=== PATIENT | male | born 1965 | race Caucasian/White ===

== ENCOUNTER 2022-08-22 22:08 | Emergency (ER) | payer SELFPAY ==
[2022-08-22 22:15] VITALS: BP 216/120; PULSE 80; RESP 20; TEMP 36.7; O2SAT 98; BMI 32.2
--- NOTE | 2022-08-22 22:21 | ECG_ITS ---
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
--- NOTE | 2022-08-22 22:27 | XRR_ITS ---
PROCEDURE INFORMATION: Exam: XR Chest Exam date and time: 08/22/2022 10:44 PM Age: 56 years old Clinical indication: Pain; Chest pressure; Additional info: Cp TECHNIQUE: Imaging protocol: Radiologic exam of the chest. Views: 1 view. COMPARISON: No relevant prior studies available. FINDINGS: Lungs: Unremarkable. No consolidation. Pleural spaces: Unremarkable. No pleural effusion. No pneumothorax. Heart/Mediastinum: Unremarkable. No cardiomegaly. Bones/joints: Unremarkable. XR/XR chest 1V portable [id number] IMPRESSION: No acute findings.
--- NOTE | 2022-08-22 22:48 | ED_ITS ---
HPI - Chest Pain General: Chief Complaint: Chest Pain Stated Complaint: High BP Time Seen by Provider: 08/22/22 22:29 Source: patient Mode of arrival: ambulatory Limitations: no limitations History of Present Illness: 56-year-old male who is here from [facility] he states that his blood pressures been running high throughout the day in [facility] today that given her to clonidine nare this morning and his blood pressure now is 260/120 states he had some slight chest pain since 10 AM as well he denies any severe pain in his chest rates his pain a 2 out of 10 denies any diaphoresis or nausea denies any shortness of breath. Associated symptoms: Deny abdominal pain, dyspnea, fever(s), nausea or vomiting Review of Systems Const: Denies: fever(s), chills, body aches or change in appetite Eyes: Denies: blurry vision or eye discomfort ENMT: Denies: throat pain or dental pain Card: Reports: chest pain Resp: Denies: dyspnea GI: Denies: abdominal pain, nausea, vomiting or diarrhea : Denies: dysuria Musc: Denies: neck pain or back pain Skin/Breast: Denies: rash Neuro: Denies: headache(s) Psych: Denies: depression Taj/Lymph: Denies: easy bruising All/Imm: Denies: urticaria PFSH ED PFSH: Medical History No pertinent past medical history Social History (Updated 08/22/22 @ 22:49 by Shira Salgado MD) Substance/Drug Use: unknown Physical Exam Const: COMMON NORMALS: no acute distress, patient oriented x3 and healthy appearing HENMT: COMMON NORMALS: normocephalic and atraumatic HEAD & SCALP: normocephalic and atraumatic Eye: COMMON NORMALS: Equal, round and reactive pupils present and EOMs intact bilaterally PUPIL: Yes Equal, round and reactive pupils present Neck/C-Spine: COMMON NORMALS: full ROM and supple Chest: COMMONS NORMALS: normal inspection of the chest and normal palpation of entire chest wall Resp: COMMON NORMALS: normal respiratory effort, No retractions, No use of accessory muscles and clear to auscultation bilaterally AUSCULTATION: clear to auscultation bilaterally Cardio: COMMON NORMALS: regular rate, regular rhythm and No murmurs present (Cardio) RATE: regular rate RHYTHM: regular rhythm GI: COMMON NORMALS: Normal to inspection, nondistended, normoactive bowel karsten nds present, Soft to palpation, non-tender and no masses PALPATION: Yes Soft to palpation Extremity: COMMON NORMALS: normal to inspection and full ROM Neuro: COMMON NORMALS: patient oriented x3, moves all extremities and no focal motor deficits Psych: COMMON NORMALS: mental status grossly normal, Normal thought process present and cooperative THOUGHT PROCESS: Normal thought process present Skin: COMMON NORMALS: no rashes or lesions noted and no wounds GENERAL SKIN EXAM: no rashes or lesions noted Course Vital Signs: Vital signs: Vital Signs Temperature 98.1 F 08/22/22 22:15 Pulse Rate 65 08/22/22 23:21 Respiratory Rate 17 08/22/22 23:21 Blood Pressure 182/130 08/22/22 23:21 Pulse Oximetry 97 08/22/22 23:21 Oxygen Delivery Me thod 08/22/22 23:21 MDM - Chest Pain Medical Decision Making Patient presents here with hypertension that has since improved he is likely had a chronic hypertension event know about it we will start him on metoprolol troponin here is normal no signs of aortic dissection or acute coronary s yndrome. He is to follow-up and return if worsening. Lab Data 08/22/22 22:53 08/22/22 22:53 Radiology Impressions Chest X-Ray 08/22/22 22:27 IMPRESSION: No acute findings. Laboratory Results WBC 8.5 10^3/uL (4.0-10.0) 08/22/22 22:53 RBC 5.53 10^6/uL (4.1-5.3) H 08/22/22 22:53 Hgb 16.5 g/dL (11.7-16.6) 08/22/22 22:53 Hct 48.1 % (42.0-52.0) 08/22/22 22:53 MCV 87.0 fl (80-94) 08/22/22 22:53 MCH 29.8 pg (28.0-34.0) 08/22/22 22:53 MCHC 34.3 g/dL (30.0-36.0) 08/22/22 22:53 RDW 12.5 % (12.1-15.1) 08/22/22 22:53 Plt Count 211 10^3/cmm (130-400) 08/22/22 22:53 MPV 10.1 fL (7.4-10.4) 08/22/22 22:53 Neut % (Auto) 57.2 % 08/22/22 22:53 Lymph % (Auto) 29.1 % 08/22/22 22:53 Cottle % (Auto) 10.6 % 08/22/22 22:53 Eos % (Auto) 1.6 % 08/22/22 22:53 Baso % (Auto) 1.1 % 08/22/22 22:53 Neut # (Auto) 4.87 10^3/uL (1.8-7.7) 08/22/22 22:53 Lymph # (Auto) 2.5 10^3/uL (0.8-4.8) 08/22/22 22:53 [place]le # (Auto) 0.9 10^3/uL (0.2-0.9) 08/22/22 22:53 Eos # (Auto) 0.1 10^3/uL (0.0-0.8) 08/22/22 22:53 Baso # (Auto) 0.1 10^3/uL (0.0-0.1) 08/22/22 22:53 Nucleated RBC % (auto) 0 % 08/22/22:53 Nucleated RBCs # 0.0 /100WBC 08/22/22 22:53 PT 13.30 SECONDS (12.1-14.9) 08/22/22 22:53 INR 0.98 (0.8-1.2) 08/22/22 22:53 Sodium 141 mmol/L (136-145) 08/22/22 22:53 Potassium 4.2 mmol/L (3.5-5.1) 08/22/22 22:53 Chloride 105 mmol/L (98-107) 08/22/22 22:53 Carbon Dioxide 23 mmol/L (22-29) 08/22/22 22:53 Anion Gap 17.2 (5-19) 08/22/22 22:53 BUN 11 mg/dL (6-20) 08/22/22 22:53 Creatinine 1.0 mg/dL (0.7-1.2) 03/16/23 22:53 GFR Calculation 77.6 mL/min (90-130) L 08/22/22 22:53 Glucose 90 mg/dL (65-115) 08/22/22 22:53 Calculated Osmolality 291 mOsm/kg (285-295) 08/22/22 22:53 Calcium 9.0 mg/dL (8.5-10.5) 08/22/22 22:53 Total Bilirubin 0.5 mg/dL (0.15-1.2) 08/22/22 22:53 AST 31 U/L (0-40) 08/22/22 22:53 ALT 50 U/L (0-41) H 08/22/22 22:53 Alkaline Phosphatase 79 U/L (40-130) 08/22/22 22:53 Troponin T Baseline 9 ng/L (0-15) 08/22/22 22:53 Total Protein 7.1 g/dL (6.6-8.7) 08/22/22 22:53 Albumin 4.1 g/dL (3.5-5.2) 08/22/22 22:53 Globulin 3.0 g/dL (1.3-4.6) 08/22/22 22:53 EKG Data EKG 1: I personally reviewed and interpreted this EKG as follows: EKG interpretation date: 08/22/22 EKG interpretation time: 22:27 Interpretation: nsr hr [address] or t wave abnormalities qrs 99 qtc 395 Discharge Plan Discharge Patient Disposition: Home Clinical Impression: Chest pain, Hypertension Prescriptions: New metoprolol succinate 50 mg tablet extended release 24 hr 50 mg PO DAILY Qty: 30 0RF Discharge Orders: Discharge ED (Routine); Ordered 08/23/22 Ordered By: Shira Salgado Discharge Diet: Advance as tolerated Discharge Activity: Resume usual activity Patient Instructions: Chest Pain (ED), Hypertension (ED) Coding Level of Care Code ED Supervisor Phosphoric Acid for Danni Marquez
[2022-08-22 22:51] VITALS: BP 170/93; PULSE 67; RESP 15; O2SAT 96
[2022-08-22] MEDS: labetalol 5 mg/mL SDV 20mL 10 MG IVP (22:55)
[2022-08-22 23:01] LABS: Basophils # 0.1 10^3/uL (0.0-0.1); Basophils % 1.1 %; Eosinophils # 0.1 10^3/uL (0.0-0.8); Eosinophils % 1.6 %; Hematocrit 48.1 % (42.0-52.0); Hemoglobin 16.5 g/dL (11.7-16.6); Lymphocytes # 2.5 10^3/uL (0.8-4.8); Lymphocytes % 29.1 %; Mean Corpuscular HGB Conc 34.3 g/dL (30.0-36.0); Mean Corpuscular Hemoglobin 29.8 pg (28.0-34.0); Mean Platelet Volume 10.1 fL (7.4-10.4); Monocytes # 0.9 10^3/uL (0.2-0.9); Monocytes % 10.6 %; Neutrophils # 4.87 10^3/uL (1.8-7.7); Neutrophils % 57.2 %; Nucleated Red Blood Cells % 0 %; Platelet Count 211 10^3/cmm (130-400); Red Blood Count 5.53 10^6/uL (4.1-5.3); Red Cell Distribution Width 12.5 % (12.1-15.1); White Blood Count 8.5 10^3/uL (4.0-10.0)
[2022-08-22 23:08] LABS: INR 0.98 (0.8-1.2)
[2022-08-22 23:13] LABS: Alanine Aminotransferase 50 U/L (0-41); Albumin Level 4.1 g/dL (3.5-5.2); Alkaline Phosphatase 79 U/L (40-130); Anion Gap 17.2 (5-19); Aspartate Amino Transferase 31 U/L (0-40); Blood Urea Nitrogen 11 mg/dL (6-20); Carbon Dioxide 23 mmol/L (22-29); Chloride 105 mmol/L (98-107); Glomerular Filtration Rate 77.6 mL/min (90-130); Glucose 90 mg/dL (65-115); Osmolality Calculated 291 mOsm/kg (285-295); Potassium 4.2 mmol/L (3.5-5.1); Sodium 141 mmol/L (136-145); Total Bilirubin 0.5 mg/dL (0.15-1.2); Total Protein 7.1 g/dL (6.6-8.7)
[2022-08-22 23:14] LABS: Troponin(5th) Baseline 9 ng/L (0-15)
[2022-08-22 23:21] VITALS: BP 182/130; PULSE 65; RESP 17; O2SAT 97
[2022-08-22] MEDS: hyDRALAzine 20 mg/mL INJ 1 mL 10 MG IVP (23:30)
[2022-08-23] MEDS: hyDRALAzine 20 mg/mL INJ 1 mL IVP (00:13)
[2022-08-23 01:18] VITALS: BP 203/103; PULSE 79; RESP 16; O2SAT 96
--- NOTE | 2022-08-27 13:39 | DCPLANNER ---
Addendum entered by Mandy Fierro 08/28/22 14:43: information resources manager called patient due to no primary care physician - no answer at this time Original Note: information resources manager called patient due to no primary care physician - no answer at this time
== END 2022-08-23 01:21 | disposition home or self-care (01) ==
PROVIDERS: Emergency Provider Emergency Medicine
DX: R07.9 Chest pain, unspecified (principal); I10 Essential (primary) hypertension
CPT/HCPCS: 71045; 80053; 84484; 85025; 85610; 93005; 96374; 96375; 96376; 99285; J0360; J3490

== ENCOUNTER 2022-08-24 00:53 | Emergency (ER) | payer SELFPAY ==
[2022-08-24] VITALS (7 sets, daily range): BP systolic 161–233; BP diastolic 85–101; PULSE 60–81; RESP 14–18; TEMP 36.8; O2SAT 95–98; BMI 32.1
--- NOTE | 2022-08-24 01:40 | ECG_ITS ---
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
[2022-08-24] MEDS: enalaprilat 1.25 mg/mL Inj IVP (02:03)
[2022-08-24] MEDS: amlodipine 10 mg Tablet PO (02:03)
[2022-08-24] MEDS: labetalol 5 mg/mL SDV 20mL 20 MG IVP ×2 (02:06→03:08)
[2022-08-24] MEDS: metoprolol succinate ER (24 HR) 50 mg Tablet PO (03:49)
[2022-08-24] MEDS: lisinopril 20 mg Tablet PO (03:50)
--- NOTE | 2022-08-24 03:51 | PC.NURSE ---
ke chiu was given 3 metoprolol and 3 lisinopril for [facility] to administer over the next 3 days while waiting on mail order prescriptions that will arrive on Friday
--- NOTE | 2022-08-24 03:59 | W.ED.GENADLT ---
HPI - General Adult General: Chief complaint: General Medical Stated complaint: High BP Time Seen by Provider: 08/24/22 01:18 Source: patient History of Present Illness: 56-year-old male who was seen 24 hours or so ago for hypertension. Hypertension was controlled decently well in the ER, and he was discharged on medication, however medication was not able to be filled. He presents again this morning with hypertension in the 220s systolic. He is having some generalized chest tightness, which he was having before. He has a headache. He has mild shortness of breath. Onset (ago): hour(s) Location: head and chest Radiation: non-radiation Severity: moderate Quality: other Pain Consistency: intermittent Relieving factors: other Exacerbating factors: none Associated symptoms: Reports chest pain (Minimal), dyspnea (Minimal) and headache(s); Deny confusion, cough, diaphoresis, decreased appetite, fevers/chills, vomiting or weakness Review of Systems Const: Denies: fever(s) or diaphoresis Card: Reports: chest pain (Minimal) Resp: Reports: dyspnea (Minimal) GI: Denies: vomiting Neuro: Reports: headache(s); Denies: confusion PFS ED PFSH: Medical History No pertinent past medical history Physical Exam Const: COMMON NORMALS: no acute distress GENERAL APPEARANCE: cooperative; not ill appearing and not frail appearing HENMT: COMMON NORMALS: normocephalic, atraumatic and Normal external nose present HEAD & SCALP: normocephalic and atraumatic FACE & SINUS: normal facial exam and face symmetric NOSE: Normal external nose present Eye: COMMON NORMALS: Equal, round and reactive pupils present and EOMs intact bilaterally PUPIL: Yes Equal, round and reactive pupils present Neck/C-Spine: GENERAL: Yes trachea midline Chest: CHEST: Yes Symmetrical chest wall rise Resp: COMMON NORMALS: normal respiratory effort, No retractions, No use of accessory muscles and clear to auscultation bilaterally AUSCULTATION: clear to auscultation bilaterally Cardio: COMMON NORMALS: regular rate and regular rhythm RATE: regular rate RHYTHM: regular rhythm GI: COMMON NORMALS: Normal to inspection, nondistended, normoactive bowel sounds present Extremity: COMMON NORMALS: no pedal edema Neuro: SAROJ COMA SCALE: document GCS findings Saroj coma scale eye opening: Spontaneous Saroj coma scale verbal response: Orientated [place] coma scale motor response: Obey commands Saroj coma scale total score: 15 SENSORY EXAM: Yes extremities (intact) Psych: COMMON NORMALS: speech normal SPEECH: Yes normal speech Skin: COMMON NORMALS: no rashes or lesions noted GENERAL SKIN EXAM: no rashes or lesions noted Course Vital Signs: Vital signs: Vital Signs Temperature 98.3 F 08/24/22 01:08 Pulse Rate 60 08/24/22 03:23 Respiratory Rate 14 08/24/22 03:23 Blood Pressure 161/101 08/24/22 03:23 Pulse Oximetry 98 08/24/22 03:23 Oxygen Delivery Me thod 08/24/22 01:43 MDM - General Adult Medical Decision Making Labs are essentially 24 hours old. They were not repeated, as they were not remarkable prior. This is likely a case of chronic hypertension that is gone undiagnosed. He simply did not get his antihypertensives today. Blood pressure down to 170 systolic over 80s diastolic after IV labetalol and Vasotec with 1 oral amlodipine. He is feeling improved. Last night he was prescribed metoprolol extended release. This will be continued, as well as we will put him on 20 mg of lisinopril given his significantly high blood pressures that will likely need at least 2 medications to control. He was given his first doses of these this morning, and dispensed to more doses to get him through the weekend so that he can get his prescription filled at the beginning of the week. He will return for worsening symptoms despite treatment. Discharge Plan Discharge Patient Disposition: Home Clinical Impression: Hypertension Condition: Stable Prescriptions: New lisinopril 20 mg tablet 20 mg PO DAILY Qty: 30 0RF Continued metoprolol succinate 50 mg tablet extended release 24 hr 50 mg PO DAILY Qty: 30 0RF Discharge Orders: Discharge ED (Routine); Ordered 08/24/22 Ordered By: Saeed De Santiago Patient Instructions: Hypertension (ED) Activity Restrictions/Additional Instructions: Medications as directed. Return for inability to control blood pressure despite 2 doses of medications, symptomatic high blood pressure, mental status changes, weakness, chest pain, other concerning symptoms. Coding Level of Care Code ED Poultry Inspector for Danni Marquez
--- NOTE | 2022-08-27 14:45 | DCPLANNER ---
tire shop manager called patient due to no primary care physician - no answer at this time
== END 2022-08-24 04:00 | disposition home or self-care (01) ==
PROVIDERS: Emergency Provider Emergency Medicine
DX: I10 Essential (primary) hypertension (principal)
CPT/HCPCS: 93005; 96360; 96361; 96376; 99284; J3490

== ENCOUNTER 2022-08-25 18:56 | Emergency (ER) | payer SELFPAY ==
[2022-08-25 19:13] VITALS: BP 208/151; PULSE 79; RESP 18; TEMP 37.1; O2SAT 97; BMI 32.1
--- NOTE | 2022-08-25 19:16 | XRR_ITS ---
PROCEDURE INFORMATION: Exam: XR Chest Exam date and time: 08/25/2022 7:19 PM Age: 56 years old Clinical indication: Cough; Additional info: Hematemasis TECHNIQUE: Imaging protocol: Radiologic exam of the chest. Views: 1 view. COMPARISON: CR (CHEST, ) 08/22/2022 10:44 PM FINDINGS: Lungs: Unremarkable. No consolidation. Pleural spaces: Unremarkable. No pleural effusion. No pneumothorax. Heart/Mediastinum: Unremarkable. No cardiomegaly. Bones/joints: Unremarkable. XR/XR chest 1V portable [id number] IMPRESSION: No acute findings.
[2022-08-25 19:24] LABS: Basophils # 0.1 10^3/uL (0.0-0.1); Basophils % 1.2 %; Eosinophils # 0.4 10^3/uL (0.0-0.8); Eosinophils % 4.9 %; Hemoglobin 16.1 g/dL (11.7-16.6); Lymphocytes # 1.8 10^3/uL (0.8-4.8); Lymphocytes % 23.1 %; Mean Corpuscular HGB Conc 32.9 g/dL (30.0-36.0); Mean Corpuscular Hemoglobin 29.3 pg (28.0-34.0); Mean Corpuscular Volume 89.1 fl (80-94); Mean Platelet Volume 10.2 fL (7.4-10.4); Monocytes # 0.5 10^3/uL (0.2-0.9); Monocytes % 5.9 %; Neutrophils # 4.88 10^3/uL (1.8-7.7); Neutrophils % 64.5 %; Nucleated Red Blood Cells % 0 %; Platelet Count 214 10^3/cmm (130-400); Red Cell Distribution Width 12.9 % (12.1-15.1); White Blood Count 7.6 10^3/uL (4.0-10.0)
[2022-08-25 19:30] VITALS: PULSE 68; RESP 18; O2SAT 96
--- NOTE | 2022-08-25 19:34 | ED_ITS ---
HPI - Abdominal Pain General: Chief Complaint: Abdominal Pain Stated Complaint: high bp,coughing up blood Time Seen by Provider: 08/25/22 19:12 Source: patient History of Present Illness: 56-year-old incarcerated male who has been seen twice in the last 3 days for hypertension. He was placed on 2 antihypertensives, metoprolol and lisinopril on discharge. He reports taking these medications appropriately. Despite this, his blood pressures have been as low as 170 systolic, and as high as over 200 systolic. He has developed a cough. Today, he noticed some dark red blood in the sputum. No fever. No leg swelling. He complains of a tightness and ache in his chest and epigastrium that radiates through into his back. Pertinent past history: other Onset (ago): day(s) Pain Consistency: constant Quality: aching Radiation: epigastric and back Migration to: no migration Exacerbating factors: nothing Relieving factors: nothing Associated Symptoms: Denies belching, bloating, change in bowel habits, diarrhea, fever(s), hematemesis, melena and poor appetite Review of Systems Const: Denies: fever(s) ENMT: Denies: throat pain Card: Reports: chest pain Resp: Reports: dyspnea, productive cough and hemoptysis; Denies: non-productive cough GI: Denies: hematemesis, diarrhea, bloating, belching, change in bowel habits or melena : Denies: flank pain Musc: Reports: back pain [facility] ED PFSH: Medical History No pertinent past medical history Physical Exam Const: COMMON NORMALS: no acute distress GENERAL APPEARANCE: cooperative; not ill appearing and not frail appearing HENMT: COMMON NORMALS: normocephalic, atraumatic and Normal external nose present HEAD & SCALP: normocephalic and atraumatic FACE & SINUS: normal facial exam and face symmetric NOSE: Normal external nose present Eye: COMMON NORMALS: Equal, round and reactive pupils present and EOMs intact bilaterally PUPIL: Yes Equal, round and reactive pupils present Neck/C-Spine: GENERAL: Yes trachea midline Chest: CHEST: Yes Symmetrical chest wall rise Resp: COMMON NORMALS: normal respiratory effort, No retractions, No use of accessory muscles and clear to auscultation bilaterally AUSCULTATION: clear to auscultation bilaterally Cardio: COMMON NORMALS: regular rate and regular rhythm RATE: regular rate RHYTHM: regular rhythm GI: COMMON NORMALS: Normal to inspection, nondistended, normoactive bowel sounds present PALPATION: Yes Tenderness to palpation present (GI) (Epigastric) Extremity: COMMON NORMALS: no pedal edema Neuro: SAROJ COMA SCALE: document GCS findings [place] coma scale eye opening: Spontaneous Saroj coma scale verbal response: Orientated [place] coma scale motor response: Obey commands Saroj coma scale total score: 15 SENSORY EXAM: Yes extremities (intact) Psych: COMMON NORMALS: speech normal SPEECH: Yes normal speech Skin: COMMON NORMALS: no rashes or lesions noted GENERAL SKIN EXAM: no rashes or lesions noted Course Vital Signs: Vital signs: Vital Signs Temperature 98.8 F 08/25/22 19:13 Pulse Rate 60 08/25/22 21:25 Respiratory Rate 18 08/25/22 20:02 Blood Pressure 144/82 08/25/22 21:25 Pulse Oximetry 97 08/25/22 21:25 Oxygen Delivery Me thod 08/25/22 20:19 MDM - Abdominal Pain Medical Decision Making Spoke with the patient's primary physician from the [place] [facility]. He has been concerned about this patient's blood pressure as well. They have been using clonidine up to twice daily for control which had seem to be working well. Initial blood pressure here was 208 systolic. The patient was given sublingual nitroglycerin, 1.25 mg of Vasotec, and 10 mg of amlodipine. Currently blood pressure is 143/84. He was having some chest discomfort, and has been on and off for several days. His troponin level is 9. His BNP is normal. CBC is normal. His creatinine is 1.0. His BMP is otherwise not remarkable. He is spilling no protein in his blood. There was some question about hemoptysis, but his D-dimer is 0.44 and chest x-ray is negative. His mediastinum is not widened. His EKG shows a sinus rhythm with normal axis and normal intervals. There are no ST wave changes, no significant Q waves. Recommendations from the PCP are increasing metoprolol to 100 daily, maintaining lisinopril 20 mg, and adding clonidine 0.2 mg twice daily if needed. Also recommended were to crush float medications some malingering would not be an issue if in fact that is the problem. Lab Data 08/25/22 19:15 08/25/22 19:15 Labs/Radiology: Radiology Impressions Chest X-Ray 08/25/22 19:16 IMPRESSION: No acute findings. Laboratory Results WBC 7.6 10^3/uL (4.0-10.0) 08/25/22 19:15 RBC 5.50 10^6/uL (4.1-5.3) H 08/25/22 19:15 Hgb 16.1 g/dL (11.7-16.6) 08/25/22 19:15 Hct 49.0 % (42.0-52.0) 08/25/22 19:15 MCV 89.1 fl (80-94) 08/25/22 19:15 MCH 29.3 pg (28.0-34.0) 08/25/22 19:15 MCHC 32.9 g/dL (30.0-36.0) 08/25/22 19:15 RDW 12.9 % (12.1-15.1) 08/25/22 19:15 Plt Count 214 10^3/cmm (130-400) 08/25/22 19:15 MPV 10.2 fL (7.4-10.4) 08/25/22 19:15 Neut % (Auto) 64.5 % 08/25/22 19:15 Lymph % (Auto) 23.1 % 08/25/22 19:15 [place] % (Auto) 5.9 % 08/25/22 19:15 Eos % (Auto) 4.9 % 08/25/22 19:15 Baso % (Auto) 1.2 % 08/25/22 19:15 Neut # (Auto) 4.88 10^3/uL (1.8-7.7) 08/25/22 19:15 Lymph # (Auto) 1.8 10^3/uL (0.8-4.8) 08/25/22 19:15 [place] # (Auto) 0.5 10^3/uL (0.2-0.9) 08/25/22 19:15 Eos # (Auto) 0.4 10^3/uL (0.0-0.8) 08/25/22 19:15 Baso # (Auto) 0.1 10^3/uL (0.0-0.1) 08/25/22 19:15 Nucleated RBC % (auto) 0 % 08/25/22 19:15 Nucleated RBCs # 0.0 /100WBC 08/25/22 19:15 PT 13.40 SECONDS (12.1-14.9) 08/25/22 19:15 INR 0.99 (0.8-1.2) 08/25/22 19:15 APTT 27.1 SECONDS (23.9-36.7) 08/25/22 19:15 D-Dimer 0.44 ug/mIFEU (0-0.59) 08/25/22 19:15 Sodium 143 mmol/L (136-145) 08/25/22 19:15 Potassium 4.6 mmol/L (3.5-5.1) 08/25/22 19:15 Chloride 107 mmol/L (98-107) 08/25/22 19:15 Carbon Dioxide 25 mmol/L (22-29) 08/25/22 19:15 Anion Gap 15.6 (5-19) 08/25/22 19:15 BUN 13 mg/dL (6-20) 08/25/22 19:15 Creatinine 1.0 mg/dL (0.7-1.2) 08/25/22 19:15 GFR Calculation 77.6 mL/min (90-130) L 08/25/22 19:15 Glucose 154 mg/dL (65-115) H 08/25/22 19:15 Calculated Osmolality 299 mOsm/kg (285-295) H 08/25/22 19:15 Calcium 9.3 mg/dL (8.5-10.5) 08/25/22 19:15 Total Bilirubin 0.7 mg/dL (0.15-1.2) 08/25/22 19:15 AST 22 U/L (0-40) 08/25/22 19:15 ALT 38 U/L (0-41) 08/25/22 19:15 Alkaline Phosphatase 81 U/L (40-130) 08/25/22 19:15 Troponin T Baseline 9 ng/L (0-15) 08/25/22 19:15 NT-Pro-B Natriuret Pep 105 pg/mL (0-125) 08/25/22 19:15 Total Protein 6.8 g/dL (6.6-8.7) 08/25/22 19:15 Albumin 4.6 g/dL (3.5-5.2) 08/25/22 19:15 Globulin 2.2 g/dL (1.3-4.6) 08/25/22 19:15 Urine Color Yellow (Yellow) 08/25/22 20:51 Urine Appearance Clear (CLEAR) 08/25/22 20:51 Urine pH 7 (5-7) 08/25/22 20:51 Ur Specific [place] 1.005 (1.005-1.030) 08/25/22 20:51 Urine Protein Neg (Negative) 08/25/22 20:51 Urine Glucose (UA) Norm (Normal) 08/25/22 20:51 Urine Ketones Negative (Negative) 08/25/22 20:51 Urine Blood Neg (Negative) 08/25/22 20:51 Urine Nitrate Negative (Negative) 08/25/22 20:51 Urine Bilirubin Neg (Negative) 08/25/22 20:51 Urine Urobilinogen Norm mg/dL (Negative) 08/25/22 20:51 Ur Leukocyte Esterase Negative (Negative) 08/25/22 20:51 Discharge Plan Discharge Patient Disposition: Home Clinical Impression: Hypertension, Chest pain Condition: Stable Prescriptions: New metoprolol succinate 100 mg tablet extended release 24 hr 100 mg PO DAILY Qty: 30 0RF Discontinued metoprolol succinate 50 mg tablet extended release 24 hr 50 mg PO DAILY Qty: 30 0RF No Action lisinopril 20 mg tablet 20 mg PO DAILY Qty: 30 0RF Discharge Orders: Discharge ED (Routine); Ordered 08/25/22 Ordered By: Saeed De Santiago Patient Instructions: Chest Pain (ED), Coughing Up Blood (Hemoptysis) (ED), Hypertension (ED) Activity Restrictions/Additional Instructions: Your evaluation did not show a serious cause for coughing up blood. Your blood pressure was managed in the emergency department. There does not appear to be any damage to the heart or lungs from blood pressure changes. In consultation with the primary care physician, we have changed medications, and more changes may come. Return for worsening symptoms despite treatment. Coding Level of Care Code ED Carbon Capture Power Plant Operator for Danni Marquez
[2022-08-25 19:40] LABS: INR 0.99 (0.8-1.2)
[2022-08-25 19:41] LABS: Partial Thromboplastin Time 27.1 SECONDS (23.9-36.7)
[2022-08-25 19:43] LABS: D Dimer 0.44 ug/mIFEU (0-0.59)
[2022-08-25 19:49] LABS: Troponin(5th) Baseline 9 ng/L (0-15)
[2022-08-25 19:56] LABS: Alanine Aminotransferase 38 U/L (0-41); Albumin Level 4.6 g/dL (3.5-5.2); Alkaline Phosphatase 81 U/L (40-130); Anion Gap 15.6 (5-19); Aspartate Amino Transferase 22 U/L (0-40); Blood Urea Nitrogen 13 mg/dL (6-20); Calcium 9.3 mg/dL (8.5-10.5); Carbon Dioxide 25 mmol/L (22-29); Chloride 107 mmol/L (98-107); Globulin 2.2 g/dL (1.3-4.6); Glomerular Filtration Rate 77.6 mL/min (90-130); Glucose 154 mg/dL (65-115); NT Pro B Type Natriuretic Pept 105 pg/mL (0-125); Osmolality Calculated 299 mOsm/kg (285-295); Potassium 4.6 mmol/L (3.5-5.1); Sodium 143 mmol/L (136-145); Total Bilirubin 0.7 mg/dL (0.15-1.2); Total Protein 6.8 g/dL (6.6-8.7)
[2022-08-25] MEDS: amlodipine 10 mg Tablet PO (19:58)
[2022-08-25] MEDS: nitroglycerin 0.4 mg sublingual Tablet SUBLINGUAL (19:59)
[2022-08-25] MEDS: enalaprilat 1.25 mg/mL Inj IVP (20:00)
[2022-08-25 20:02] VITALS: BP 165/92; PULSE 62; RESP 18; O2SAT 94
[2022-08-25 20:04] VITALS: O2SAT 94
--- NOTE | 2022-08-25 20:06 | PC.NURSE ---
Advised Dr. De Santiago, held labetolol 20 mg due to patient's sudden drop in BP after meds and HR of 62. Dr. De Santiago okayed.
--- NOTE | 2022-08-25 20:11 | ECG_ITS ---
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1965 Requested By: Saeed Santa Order Number: [id number] Reading MD: VALERIE NEGRETE Measurements Intervals [place] Rate: 66 P: 28 MD: 166 QRS: 10 QRSD: 106 T: 114 QT: 373 QTc: 391 Interpretive Statements SINUS RHYTHM WITH OCCASIONAL SUPRAVENTRICULAR PREMATURE COMPLEXES MODERATE T-WAVE ABNORMALITY, CONSIDER LATERAL ISCHEMIA [-0.1+ mV T-WAVE IN I/aVL/V5/V6] Compared to ECG 08/24/2022 01:16:25 Possible ischemia now present T-wave abnormality still present Electronically Signed On 08-26-2022 3:07:05 CDT by VALERIE NEGRETE [id number]
[2022-08-25 20:19] VITALS: BP 171/101; PULSE 65; O2SAT 96
[2022-08-25 20:52] LABS: Add Urine Microscopic? NO; Charge for UA Resulting for Rev
[2022-08-25 20:54] LABS: Bilirubin Urine Neg (Negative); Blood Urine Neg (Negative); Glucose Urine UA Norm (Normal); Ketones Urine Negative (Negative); Leukocyte Esterase Urine Negative (Negative); Nitrate Urine Negative (Negative); Protein Urine Neg (Negative); Specific Gravity, Urine 1.005 (1.005-1.030); Urine Appearance Clear (CLEAR); Urine Color Yellow (Yellow); Urobilinogen Urine Norm (Negative); pH Urine 7 (5-7)
[2022-08-25 21:25] VITALS: BP 144/82; PULSE 60; O2SAT 97
--- NOTE | 2022-08-29 11:23 | DCPLANNER ---
Addendum entered by Mandy Fierro 08/29/22 13:18: Case loretaer called patient due to no primary care physician - no answer at this time Original Note: 08.28.22 - TCM called patient due to no primary care physician
== END 2022-08-25 21:26 | disposition home or self-care (01) ==
PROVIDERS: Emergency Provider Emergency Medicine
DX: I10 Essential (primary) hypertension (principal); R07.9 Chest pain, unspecified
CPT/HCPCS: 71045; 80053; 81003; 83880; 84484; 85025; 85378; 85610; 85730; 93005; 96374; 99285; J3490

== ENCOUNTER 2022-08-29 02:23 | Emergency (ER) | payer SELFPAY ==
[2022-08-29] VITALS (33 sets, daily range): BP systolic 90–220; BP diastolic 49–161; PULSE 74–104; RESP 4–27; TEMP 37.2; O2SAT 94–98; BMI 32.1
--- NOTE | 2022-08-29 02:15 | XRR_ITS ---
PROCEDURE INFORMATION: Exam: XR Chest Exam date and time: 08/29/2022 2:25 AM Age: 56 years old Clinical indication: Other: Syncope; Patient HX: Syncopal episode. Hypertensive on monitor. ; Additional info: Cp TECHNIQUE: Imaging protocol: Radiologic exam of the chest. Views: 1 view. COMPARISON: CR (CHEST, ) 08/25/2022 7:19 PM FINDINGS: Lungs: No CHF/pulmonary edema. Visible lungs appear essentially clear. Pleural spaces: No visible pneumothorax. No definite pleural fluid. Heart/Mediastinum: Mild to moderate cardiomegaly Bones/joints: No significant acute finding. XR/XR chest 1V portable [id number] IMPRESSION: 1. No definite CHF or pneumonia. 2. Mild to moderate cardiomegaly. 3. Other findings discussed above.
--- NOTE | 2022-08-29 02:15 | CTR_ITS ---
PROCEDURE INFORMATION: Exam: CT Head Without Contrast Exam date and time: 08/29/2022 2:29 AM Age: 56 years old Clinical indication: Syncope and collapse; Patient HX: Syncopal episode. Hypertensive on monitor. TECHNIQUE: Imaging protocol: Computed tomography of the head without contrast. Radiation optimization: All CT scans at this facility use at least one of these dose optimization techniques: automated exposure control; mA and/or kV adjustment per patient size (includes targeted exams where dose is matched to clinical indication); or iterative reconstruction. REPORTING DATA: Count of CT and Cardiac NM exams in prior 12 months: This patient has received 0 known CTs and 0 known cardiac nuclear medicine studies in the 12 months prior to the current study. COMPARISON: No relevant prior studies available. RADIATION DOSE METRICS: Total DLP (mGy-cm): 1108.04 FINDINGS: Brain: No acute intracranial hemorrhage or mass effect. No definite acute infarct by CT. MRI could be more sensitive/specific for detection, as clinically directed. Cerebral ventricles: Ventricle size is normal for age. Paranasal sinuses: Very mild mucosal thickening/opacity in the left ethmoid sinus. Included paranasal sinuses otherwise appear essentially clear. Mastoid air cells: No significant acute finding. Bones/joints: No definite acute skull fracture. Soft tissues: No significant acute finding. CT/CT head wo con* [id number] IMPRESSION: 1. No acute intracranial hemorrhage or mass effect. 2. No definite acute infarct by CT, see above. 3. Other findings discussed above.
--- NOTE | 2022-08-29 02:15 | ECG_ITS ---
[facility] Test Date: 2022-08-29 Pat Name: Nilay Fry Department: Room: Gender: Male Supervisor [employer]: : 1965 Requested By: Shira Salgado Order Number: [id number] Robert MD: Harvey Denny M.D. Measurements Intervals [place] Rate: 91 P: 50 NM: 160 QRS: 89 QRSD: 90 T: 21 QT: 331 QTc: 407 Interpretive Statements SINUS RHYTHM NONSPECIFIC T-WAVE ABNORMALITY Compared to ECG 08/25/2022 20:11:30 Possible ischemia no longer present T-wave abnormality still present Electronically Signed On 08-29-2022 7:42:03 CDT by Harvey Denny M.D. [id number]
[2022-08-29 02:27] LABS: Basophils # 0.1 10^3/uL (0.0-0.1); Basophils % 1.1 %; Eosinophils # 0.1 10^3/uL (0.0-0.8); Eosinophils % 1.7 %; Hematocrit 51.2 % (42.0-52.0); Hemoglobin 17.6 g/dL (11.7-16.6); Lymphocytes # 2.1 10^3/uL (0.8-4.8); Mean Corpuscular HGB Conc 34.4 g/dL (30.0-36.0); Mean Corpuscular Hemoglobin 29.8 pg (28.0-34.0); Mean Corpuscular Volume 86.6 fl (80-94); Mean Platelet Volume 10.4 fL (7.4-10.4); Monocytes # 0.6 10^3/uL (0.2-0.9); Monocytes % 7.2 %; Neutrophils # 5.21 10^3/uL (1.8-7.7); Neutrophils % 63.8 %; Nucleated Red Blood Cells % 0 %; Platelet Count 210 10^3/cmm (130-400); Red Blood Count 5.91 10^6/uL (4.1-5.3); Red Cell Distribution Width 12.3 % (12.1-15.1); White Blood Count 8.2 10^3/uL (4.0-10.0)
--- NOTE | 2022-08-29 02:29 | ED_ITS ---
HPI - General Adult General: Chief complaint: General Medical Stated complaint: HTN Source: patient Mode of arrival: ambulatory Limitations: no limitations History of Present Illness: 56-year-old male who has a history of hypertension he is currently incarcerated he has been seen here multiple times for his high blood pressure he states tonight he did have a headache and passed out his blood pressure was in the 240s with EMS he is hypertensive here as well he had some mild chest pain as well he is been taking metoprolol and lisinopril he denies any worsening improving factors. Associated symptoms: Reports chest pain, headache(s) and syncope; Deny dyspnea, nausea, rash or vomiting Review of Systems Const: Denies: fever(s), chills, body aches or change in appetite Eyes: Denies: blurry vision or eye discomfort ENMT: Denies: throat pain or dental pain Card: Reports: chest pain and syncope Resp: Denies: dyspnea GI: Denies: abdominal pain, nausea, vomiting or diarrhea : Denies: dysuria Musc: Denies: neck pain or back pain Skin/Breast: Denies: rash Neuro: Reports: headache(s) Psych: Denies: depression Taj/Lymph: Denies: easy bruising All/Imm: Denies: urticaria PFSH ED PFSH: Medical History No pertinent past medical history Social History (Updated 08/29/22 @ 02:30 by Shira Salgado MD) Substance/Drug Use: unknown Physical Exam Const: COMMON NORMALS: no acute distress, patient oriented x3 and healthy appearing HENMT: COMMON NORMALS: normocephalic and atraumatic HEAD & SCALP: normocephalic and atraumatic Eye: COMMON NORMALS: Equal, round and reactive pupils present and EOMs intact bilaterally PUPIL: Yes Equal, round and reactive pupils present Neck/C-Spine: COMMON NORMALS: full ROM and supple Chest: COMMONS NORMALS: normal inspection of the chest and normal palpation of entire chest wall Resp: COMMON NORMALS: normal respiratory effort, No retractions, No use of accessory muscles and clear to auscultation bilaterally AUSCULTATION: clear to auscultation bilaterally Cardio: COMMON NORMALS: regular rate, regular rhythm and No murmurs present (Cardio) RATE: regular rate RHYTHM: regular rhythm GI: COMMON NORMALS: Normal to inspection, nondistended, normoactive bowel sounds present, Soft to palpation, non-tender and no masses PALPATION: Yes Soft to palpation Extremity: COMMON NORMALS: normal to inspection and full ROM Neuro: COMMON NORMALS: patient oriented x3, moves all extremities and no focal motor deficits Psych: COMMON NORMALS: mental status grossly normal, Normal thought process present and cooperative THOUGHT PROCESS: Normal thought process present Skin: COMMON NORMALS: no rashes or lesions noted and no wounds GENERAL SKIN EXAM: no rashes or lesions noted Course Vital Signs: Vital signs: Vital Signs Temperature 98.9 F 08/29/22 02:12 Pulse Rate 78 08/29/22 04:35 Respiratory Rate 15 08/29/22 04:35 Blood Pressure 189/144 08/29/22 04:30 Pulse Oximetry 94 08/29/22 04:35 Oxygen Delivery Me thod 08/29/22 02:12 MDM - General Adult Medical Decision Making Patient presents for with hypertension along with headaches syncopal event he is well-appearing here his blood pressure is improved head CT is normal troponin normal we will add Norvasc to his blood pressure meds he is stable for discharge at this time Lab Data 08/29/22 02:00 08/29/22 02:00 Radiology Impressions Chest X-Ray 08/29/22 02:15 IMPRESSION: 1. No definite CHF or pneumonia. 2. Mild to moderate cardiomegaly. 3. Other findings discussed above. Head CT 08/29/22 02:15 IMPRESSION: 1. No acute intracranial hemorrhage or mass effect. 2. No definite acute infarct by CT, see above. 3. Other findings discussed above. Laboratory Results WBC 8.2 10^3/uL (4.0-10.0) 08/29/22 02:00 RBC 5.91 10^6/uL (4.1-5.3) H 08/29/22 02:00 Hgb 17.6 g/dL (11.7-16.6) H 08/29/22 02:00 Hct 51.2 % (42.0-52.0) 08/29/22 02:00 MCV 86.6 fl (80-94) 08/29/22 02:00 MCH 29.8 pg (28.0-34.0) 08/29/22 02:00 MCHC 34.4 g/dL (30.0-36.0) 08/29/22 02:00 RDW 12.3 % (12.1-15.1) 08/29/22 02:00 Plt Count 210 10^3/cmm (130-400) 08/29/22 02:00 MPV 10.4 fL (7.4-10.4) 08/29/22 02:00 Neut % (Auto) 63.8 % 08/29/22 02:00 Lymph % (Auto) 26.0 % 08/29/22 02:00 Mccreary % (Auto) 7.2 % 08/29/22 02:00 Eos % (Auto) 1.7 % 08/29/22 02:00 Baso % (Auto) 1.1 % 08/29/22 02:00 Neut # (Auto) 5.21 10^3/uL (1.8-7.7) 08/29/22 02:00 Lymph # (Auto) 2.1 10^3/uL (0.8-4.8) 08/29/22 02:00 Mccreary # (Auto) 0.6 10^3/uL (0.2-0.9) 08/29/22 02:00 Eos # (Auto) 0.1 10^3/uL (0.0-0.8) 08/29/22 02:00 Baso # (Auto) 0.1 10^3/uL (0.0-0.1) 08/29/22 02:00 Nucleated RBC % (auto) 0 % 08/29/22 02:00 Nucleated RBCs # 0.0 /100WBC 08/29/22 02:00 Sodium 140 mmol/L (136-145) 08/29/22 02:00 Potassium 4.1 mmol/L (3.5-5.1) 08/29/22 02:00 Chloride 103 mmol/L (98-107) 08/29/22 02:00 Carbon Dioxide 23 mmol/L (22-29) 08/29/22 02:00 Anion Gap 18.1 (5-19) 08/29/22 02:00 BUN 11 mg/dL (6-20) 08/29/22 02:00 Creatinine 1.0 mg/dL (0.7-1.2) 08/29/22 02:00 GFR Calculation 77.6 mL/min (90-130) L 08/29/22 02:00 Glucose 102 mg/dL (65-115) 08/29/22 02:00 Calculated Osmolality 290 mOsm/kg (285-295) 08/29/22 02:00 Calcium 9.2 mg/dL (8.5-10.5) 08/29/22 02:00 Total Bilirubin 0.6 mg/dL (0.15-1.2) 08/29/22 02:00 AST 25 U/L (0-40) 08/29/22 02:00 ALT 42 U/L (0-41) H 08/29/22 02:00 Alkaline Phosphatase 89 U/L (40-130) 08/29/22 02:00 Troponin T Baseline 8 ng/L (0-15) 08/29/22 02:00 Troponin T 120 Minute 7.67 ng/L (0-15) 08/29/22 04:15 Total Protein 7.7 g/dL (6.6-8.7) 08/29/22 02:00 Albumin 4.5 g/dL (3.5-5.2) 08/29/22 02:00 Globulin 3.2 g/dL (1.3-4.6) 08/29/22 02:00 EKG Data EKG 1: I personally reviewed and interpreted this EKG as follows: EKG interpretation date: 08/29/22 EKG interpretation time: :23 Interpretation: nsr hr [address] or t wave abnormalities qrs 90 qtc 379 Computer generated interpretation: Chest X-Ray 08/29/22 02:15 IMPRESSION: 1. No definite CHF or pneumonia. 2. Mild to moderate cardiomegaly. 3. Other findings discussed above. Head CT 08/29/22 02:15 IMPRESSION: 1. No acute intracranial hemorrhage or mass effect. 2. No definite acute infarct by CT, see above. 3. Other findings discussed above. EKG 2: I personally reviewed and interpreted this EKG as follows: EKG interpretation date: 08/29/22 EKG interpretation time: 03:53 Interpretation: nsr hr [address] or t wave abnormalities qrs 101 qtc 396 Computer generated interpretation: Chest X-Ray 08/29/22 02:15 IMPRESSION: 1. No definite CHF or pneumonia. 2. Mild to moderate cardiomegaly. 3. Other findings discussed above. Head CT 08/29/22 02:15 IMPRESSION: 1. No acute intracranial hemorrhage or mass effect. 2. No definite acute infarct by CT, see above. 3. Other findings discussed above. Discharge Plan Discharge Patient Disposition: Home Clinical Impression: Hypertension, Chest pain, Head ache, Syncope Prescriptions: New Norvasc 10 mg tablet 10 mg PO DAILY Qty: 30 0RF No Action metoprolol succinate 100 mg tablet extended release 24 hr 100 mg PO DAILY Qty: 30 0RF lisinopril 20 mg tablet 20 mg PO DAILY Qty: 30 0RF Discharge Orders: Discharge ED (Routine); Ordered 08/29/22 Ordered By: Shira Salgado Discharge Diet: Advance as tolerated Discharge Activity: Resume usual activity Patient Instructions: Chest Pain (ED), General Headache (ED) Coding Level of Care Code ED Bookkeeping Machine Operator for Danni Marquez
[2022-08-29 02:43] LABS: Troponin(5th) Baseline 8 ng/L (0-15)
[2022-08-29 02:45] LABS: Alanine Aminotransferase 42 U/L (0-41); Albumin Level 4.5 g/dL (3.5-5.2); Alkaline Phosphatase 89 U/L (40-130); Anion Gap 18.1 (5-19); Aspartate Amino Transferase 25 U/L (0-40); Blood Urea Nitrogen 11 mg/dL (6-20); Calcium 9.2 mg/dL (8.5-10.5); Carbon Dioxide 23 mmol/L (22-29); Chloride 103 mmol/L (98-107); Globulin 3.2 g/dL (1.3-4.6); Glomerular Filtration Rate 77.6 mL/min (90-130); Glucose 102 mg/dL (65-115); Osmolality Calculated 290 mOsm/kg (285-295); Potassium 4.1 mmol/L (3.5-5.1); Sodium 140 mmol/L (136-145); Total Bilirubin 0.6 mg/dL (0.15-1.2); Total Protein 7.7 g/dL (6.6-8.7)
[2022-08-29] MEDS: labetalol 5 mg/mL SDV 20mL 10 MG IVP (02:48)
[2022-08-29] MEDS: hyDRALAzine 20 mg/mL INJ 1 mL 10 MG IVP ×2 (03:14→03:38)
--- NOTE | 2022-08-29 03:53 | ECG_ITS ---
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 Measurements Intervals [place] Rate: 92 P: 55 SD: 167 QRS: 64 QRSD: 101 T: 15 QT: 347 QTc: 429 Interpretive Statements SINUS RHYTHM POSSIBLE LEFT ATRIAL ENLARGEMENT [-0.1mV P-WAVE IN V1/V2] SEPTAL MYOCARDIAL INFARCTION , PROBABLY OLD [40+ ms Q WAVE IN V1/V2] Compared to ECG 08/29/2022 02:23:25 Myocardial infarct finding now present T-wave abnormality no longer present Electronically Signed On 08-29-2022 22:56:23 CDT by Colton Quarles M.D. [id number]
[2022-08-29] MEDS: labetalol 5 mg/mL SDV 20mL 20 MG IVP (04:14)
[2022-08-29] MEDS: metoclopramide 5 mg/mL SDV 2 mL 10 MG IVP (04:22)
[2022-08-29] MEDS: diphenhydrAMINE 50 mg/mL SDV 1mL IVP (04:22)
[2022-08-29 04:44] LABS: Troponin 5 2HR 7.67 ng/L (0-15)
[2022-08-29 05:12] LABS: Troponin 5 2HR Delta -0.33 ABS# (0-10)
--- NOTE | 2022-09-04 12:38 | DCPLANNER ---
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 Original Note: production operations manager called patient due to no primary care physician - no answer at this time
== END 2022-08-29 05:19 | disposition home or self-care (01) ==
PROVIDERS: Emergency Provider Emergency Medicine
DX: I10 Essential (primary) hypertension (principal); R07.9 Chest pain, unspecified; R51.9 Headache, unspecified; R55 Syncope and collapse
CPT/HCPCS: 70450; 71045; 80053; 84484; 85025; 93005; 96374; 96375; 96376; 99285; J0360; J1200; J2765; J3490